=== PATIENT | female | born 1990 | race Caucasian/White ===

== ENCOUNTER 2022-03-24 17:28 | Emergency (ER) | payer SELFPAY ==
[2022-03-24 17:48] VITALS: BP 116/79; PULSE 112; RESP 17; TEMP 97.8; BMI 32.2
[2022-03-24] MEDS ORDERED: FOLIC ACID 1 MG TABLET (FP) PO ONE (18:29)
[2022-03-24] MEDS ORDERED: THIAMINE HCL 100 MG TABLET (FP) PO ONE (18:29)
[2022-03-24] MEDS ORDERED: MAG HYDROX/AL HYDROX/SIMETH 30 ML UNIT-DOSE CUP PO ONE (18:29)
[2022-03-24] MEDS ORDERED: MULTIVITAMINS (DAILY MVI) TABLET (FP) PO ONE (18:29)
[2022-03-24] MEDS ORDERED: ONDANSETRON *ODT* 4 MG TABLET SL ONE (18:30)
[2022-03-24] MEDS ORDERED: THIAMINE HCL 100 MG TABLET (FP) ONE (18:48)
[2022-03-24] MEDS ORDERED: FOLIC ACID 1 MG TABLET (FP) ONE (18:48)
[2022-03-24] MEDS ORDERED: ONDANSETRON *ODT* 4 MG TABLET ONE (18:48)
[2022-03-24] MEDS ORDERED: MAG HYDROX/AL HYDROX/SIMETH 30 ML UNIT-DOSE CUP ONE (18:49)
[2022-03-24] MEDS ORDERED: MULTIVITAMINS (DAILY MVI) TABLET (FP) ONE (18:49)
[2022-03-24 19:59] LABS: BASO % 0.8 % (0-2.0); EOS % 1.2 % (0-4.5); HEMATOCRIT 39.8 % (32.4-45.2); HEMOGLOBIN 13.9 GM/dL (10.7-15.3); LYMPH % 32.1 % (8-40); MCH 30.4 pg (25.7-33.7); MCHC 34.9 g/dl (32.0-36.0); MEAN PLT VOLUME 6.4 fl (7.5-11.1); MONO % 6.7 % (3.8-10.2); NEUT % 59.2 % (42.8-82.8); PLATELET COUNT 535 10^3/uL (134-434); RBC 4.58 M/mm3 (3.60-5.2); RDW 12.5 % (11.6-15.6); WHITE BLOOD COUNT 8.5 K/mm3 (4.0-10.0)
[2022-03-24] MEDS ORDERED: chlordiazePOXIDE HCL 25 MG CAPSULE PO ONE (20:04)
[2022-03-24] MEDS ORDERED: chlordiazePOXIDE HCL 25 MG CAPSULE ONE (20:17)
[2022-03-24 20:18] LABS: CALCIUM 9.9 mg/dL (8.5-10.1)
[2022-03-24 20:19] LABS: ALBUMIN 4.1 g/dl (3.4-5.0); BLOOD UREA NITROGEN 8.5 mg/dL (7-18)
[2022-03-24 20:23] LABS: CREATININE 0.6 mg/dL (0.55-1.3)
[2022-03-24 20:24] LABS: BILIRUBIN,TOTAL 0.2 mg/dL (0.2-1); TOT PROT 7.6 g/dl (6.4-8.2)
== END 2022-03-24 22:14 | disposition home or self-care (01) ==
LOC: JER 17:28
DX: F10.129 Alcohol abuse with intoxication, unspecified (principal); R10.13 Epigastric pain
CPT/HCPCS: 36415; 80053; 83690; 84703; 85025; 99283-25; Q0162

== ENCOUNTER 2022-04-29 09:46 | Inpatient (IN) | payer SELFPAY ==
[2022-04-29] MEDS ORDERED: diazePAM CARPU-JECT 10 MG/2 ML DISP.SYRIN IVPUSH ONE (11:15)
[2022-04-29] MEDS ORDERED: LACTATED RINGERS SOLUTION 1000 ML INFUS.BAG IV ONE ×2 (11:15→17:02)
[2022-04-29] MEDS ORDERED: morphine CARPU-JECT 4 MG/1 ML DISP.SYRIN IVPUSH ONE ×2 (11:24→17:29)
[2022-04-29] MEDS ORDERED: ONDANSETRON 4 MG/2 ML VIAL IVPUSH ONE (11:33)
[2022-04-29] MEDS ORDERED: FAMOTIDINE 20 MG/50 ML IVPB 20 MG/50 ML MG IVPB ONE ×2 (11:38→12:13)
[2022-04-29] MEDS ORDERED: diazePAM CARPU-JECT 10 MG/2 ML DISP.SYRIN ONE (12:12)
[2022-04-29] MEDS ORDERED: ONDANSETRON 4 MG/2 ML VIAL ONE (12:13)
[2022-04-29] MEDS ORDERED: morphine SULFATE 4 MG/ML VIAL ONE ×2 (12:13→18:26)
[2022-04-29 12:38] LABS: EOS % 1.6 % (0-4.5); HEMATOCRIT 41.7 % (32.4-45.2); HEMOGLOBIN 14.4 GM/dL (10.7-15.3); LYMPH % 8.3 % (8-40); MCH 31.7 pg (25.7-33.7); MCHC 34.5 g/dl (32.0-36.0); MEAN CELL VOLUME 91.7 fl (80-96); MEAN PLT VOLUME 7.8 fl (7.5-11.1); MONO % 6.8 % (3.8-10.2); NEUT % 82.3 % (42.8-82.8); PLATELET COUNT 152 10^3/uL (134-434); RBC 4.54 M/mm3 (3.60-5.2); WHITE BLOOD COUNT 7.7 K/mm3 (4.0-10.0)
[2022-04-29 13:00] LABS: CHLORIDE 100 mmol/L (98-107); SODIUM 139 mmol/L (136-145)
[2022-04-29 13:05] LABS: CALCIUM 9.5 mg/dL (8.5-10.1)
[2022-04-29 13:06] LABS: ALBUMIN 4.3 g/dl (3.4-5.0); ANION GAP 16 MMOL/L (8-16); BLOOD UREA NITROGEN 11.7 mg/dL (7-18); CO2 24 mmol/L (21-32); GLUCOSE,RANDOM 102 mg/dL (74-106)
[2022-04-29 13:07] LABS: LIPASE 193 U/L (73-393)
[2022-04-29 13:09] LABS: CREATININE 0.7 mg/dL (0.55-1.3); SGOT/AST 165 U/L (15-37); SGPT/ALT 138 U/L (13-61)
[2022-04-29 13:11] LABS: BILIRUBIN,TOTAL 1.7 mg/dL (0.2-1); TOT PROT 7.7 g/dl (6.4-8.2)
[2022-04-29 13:12] LABS: ALK PHOS 102 U/L (45-117)
[2022-04-29 13:15] LABS: MAGNESIUM 0.9 mg/dL (1.8-2.4)
[2022-04-29] MEDS ORDERED: MAGNESIUM SULF 50% (8.12 MEQ/2 ML-1 GM VIAL) IVPB ONE (13:25)
[2022-04-29] MEDS ORDERED: KETOROLAC TROMETHAMINE 15 MG/ML VIAL IVPUSH ONE ×2 (14:31→22:50)
[2022-04-29] MEDS ORDERED: KCL 10 MEQ IVPB 10 MEQ/100 ML INFUS.BAG IVPB SCH (14:45)
[2022-04-29] MEDS ORDERED: KETOROLAC TROMETHAMINE 15 MG/ML VIAL ONE (15:39)
[2022-04-29] MEDS: KCL 10 MEQ IVPB 10 MEQ/100 ML INFUS.BAG IVPB SCH ×3 (17:15→21:00)
[2022-04-29 18:03] LABS: HIV INTERPRETATION NEGATIVE (NEGATIVE)
[2022-04-29] MEDS ORDERED: LACTATED RINGERS SOLUTION 1,000 ML/1,000 ML INFUS.BAG IV SCH (18:45)
[2022-04-29] MEDS ORDERED: KCL 10 MEQ IVPB 10 MEQ/100 ML INFUS.BAG IVPB ONE ×2 (18:49→20:48)
[2022-04-29 19:41] LABS: BLOOD UREA NITROGEN 12.6 mg/dL (7-18); CALCIUM 8.8 mg/dL (8.5-10.1); MAGNESIUM 2.5 mg/dL (1.8-2.4)
[2022-04-29 19:45] LABS: CREATININE 0.7 mg/dL (0.55-1.3)
[2022-04-29 20:22] LABS: BILIRUBIN,DIRECT 0.5 mg/dL (0.0-0.2)
[2022-04-29] MEDS ORDERED: FOLIC ACID INJECTION - 1 MG, THIAMINE HCL 100 MG, MULTIVIT INJECTION ADULT 10 ML in SOD... IVPB ONE (22:07)
[2022-04-29] MEDS ORDERED: LACTATED RINGERS SOLUTION 1,000 ML IV SCH (22:15)
[2022-04-29] MEDS ORDERED: ACETAMINOPHEN INJECTION 100 ML IVPB ONE (22:28)
[2022-04-29] MEDS: ACETAMINOPHEN 1000 MG/100 ML BAG IVPB PRN (22:40)
[2022-04-29] MEDS ORDERED: LORazepam 1 MG TABLET PO PRN (22:50)
[2022-04-29] MEDS ORDERED: LORazepam 1 MG TABLET PO SCH (23:00)
[2022-04-29 23:11] LABS: EPI CELLS 23 /uL (0-25.1); HYALINE CASTS 1 /uL (0-3.1); URINE APPEARANCE CLEAR; URINE BACTERIA 322 /uL (0-1359); URINE BILIRUBIN NEGATIVE (NEGATIVE); URINE COLOR DK YELLOW; URINE GLUCOSE (UA) NEGATIVE (NEGATIVE); URINE KETONE 1+ (NEGATIVE); URINE LEUK ESTERASE NEGATIVE (NEGATIVE); URINE NITRITE NEGATIVE (NEGATIVE); URINE PROTEIN TRACE (NEGATIVE); URINE RBC 74 /uL (0-23.9); URINE WBC 21 /uL (0-25.8)
[2022-04-30] MEDS ORDERED: LORazepam 1 MG TABLET ONE (00:02)
[2022-04-30] MEDS ORDERED: KETOROLAC TROMETHAMINE 15 MG/ML VIAL ONE (00:02)
[2022-04-30] MEDS ORDERED: LORazepam 2 MG/ML SDV VIAL IVPUSH PRN (00:50)
[2022-04-30] MEDS ORDERED: morphine SULFATE 4 MG/ML VIAL IVPUSH ONE (00:57)
[2022-04-30] MEDS ORDERED: morphine SULFATE 4 MG/ML VIAL ONE (01:48)
[2022-04-30] MEDS ORDERED: FOLIC ACID INJECTION - 1 MG, THIAMINE HCL 100 MG, MULTIVIT INJECTION ADULT 10 ML in SOD... IVPB ONE (02:00)
[2022-04-30] MEDS: LORazepam 2 MG/ML SDV VIAL IVPUSH SCH ×2 (04:08→11:12)
[2022-04-30 04:24] VITALS: BMI 31.4
[2022-04-30 09:49] LABS: BASO % 0.7 % (0-2.0); EOS % 3.2 % (0-4.5); HEMATOCRIT 35.4 % (32.4-45.2); HEMOGLOBIN 12.2 GM/dL (10.7-15.3); LYMPH % 12.7 % (8-40); MCH 31.9 pg (25.7-33.7); MCHC 34.6 g/dl (32.0-36.0); MEAN CELL VOLUME 92.2 fl (80-96); MEAN PLT VOLUME 7.5 fl (7.5-11.1); MONO % 5.9 % (3.8-10.2); NEUT % 77.5 % (42.8-82.8); PLATELET COUNT 104 10^3/uL (134-434); RBC 3.84 M/mm3 (3.60-5.2); RDW 15.6 % (11.6-15.6); WHITE BLOOD COUNT 5.9 K/mm3 (4.0-10.0)
[2022-04-30] MEDS: PANTOPRAZOLE SODIUM 40 MG VIAL IVPUSH SCH (10:10)
[2022-04-30] MEDS: THIAMINE HCL 200 MG/2 ML VIAL IVPB SCH (10:11)
[2022-04-30] MEDS: FOLIC ACID 1 MG TABLET (FP) PO SCH (10:11)
[2022-04-30 10:13] VITALS: RESP 18
[2022-04-30 10:17] LABS: BLOOD UREA NITROGEN 11.7 mg/dL (7-18); CALCIUM 8.4 mg/dL (8.5-10.1); MAGNESIUM 1.7 mg/dL (1.8-2.4)
[2022-04-30 10:20] LABS: CREATININE 0.5 mg/dL (0.55-1.3); PHOSPHOROUS 2.1 mg/dL (2.5-4.9)
[2022-04-30 10:24] LABS: ALBUMIN 3.3 g/dl (3.4-5.0)
[2022-04-30] MEDS: ACETAMINOPHEN 1000 MG/100 ML BAG IVPB PRN (10:35)
[2022-04-30] MEDS ORDERED: KCL 10 MEQ IVPB 10 MEQ/100 ML INFUS.BAG IVPB SCH (12:45)
[2022-04-30] MEDS ORDERED: NAPH,MB-DB/K PH,MBDB POWDER PACKET PO ONE (13:00)
[2022-04-30] MEDS ORDERED: MAGNESIUM IN WATER 4 GM/50 ML PREMIX BAG IVPB ONE (13:00)
[2022-04-30] MEDS ORDERED: POTASSIUM CHLORIDE TABS 20 MEQ TABLET.ER (FP) PO ONE (13:00)
[2022-04-30] MEDS ORDERED: MAGNESIUM SULFATE 4GM/100CC IN STERILE WATER IVPB ONE (13:00)
[2022-04-30] MEDS: KETOROLAC TROMETHAMINE 15 MG/ML VIAL IVPUSH PRN (20:58)
[2022-04-30] MEDS: LORazepam 1 MG TABLET PO PRN (20:59)
[2022-04-30 21:39] LABS: CALCIUM 8.8 mg/dL (8.5-10.1)
[2022-04-30 21:40] LABS: BLOOD UREA NITROGEN 8.3 mg/dL (7-18); MAGNESIUM 2.3 mg/dL (1.8-2.4)
[2022-04-30 21:44] LABS: CREATININE 0.6 mg/dL (0.55-1.3)
[2022-05-01] MEDS ORDERED: LORazepam 1 MG TABLET PO SCH (05:00)
[2022-05-01] MEDS ORDERED: LORazepam 2 MG/ML SDV VIAL IVPUSH SCH (05:00)
[2022-05-01] MEDS: LORazepam 1 MG TABLET PO PRN ×3 (09:09→22:20)
[2022-05-01] MEDS: FOLIC ACID 1 MG TABLET (FP) PO SCH (09:10)
[2022-05-01] MEDS: THIAMINE HCL 200 MG/2 ML VIAL IVPB SCH (09:10)
[2022-05-01] MEDS: PANTOPRAZOLE SODIUM 40 MG VIAL IVPUSH SCH (09:10)
[2022-05-01 09:49] LABS: ALBUMIN 3.4 g/dl (3.4-5.0)
[2022-05-01] MEDS: KETOROLAC TROMETHAMINE 15 MG/ML VIAL IVPUSH PRN ×3 (09:49→22:21)
[2022-05-01 09:55] LABS: CREATININE 0.5 mg/dL (0.55-1.3)
[2022-05-01 09:56] LABS: MAGNESIUM 1.8 mg/dL (1.8-2.4)
[2022-05-01 09:58] LABS: BLOOD UREA NITROGEN 8.7 mg/dL (7-18); CALCIUM 9.3 mg/dL (8.5-10.1)
[2022-05-01 10:01] LABS: PHOSPHOROUS 1.8 mg/dL (2.5-4.9)
[2022-05-01 10:02] LABS: TOT PROT 6.2 g/dl (6.4-8.2)
[2022-05-01] MEDS: NAPH,MB-DB/K PH,MBDB POWDER PACKET PO SCH (11:17)
[2022-05-01] MEDS: MAG HYDROX/AL HYDROX/SIMETH 30 ML UNIT-DOSE CUP PO ONE ×2 (11:17)
[2022-05-01] MEDS: SUCRALFATE 1 GM TABLET (FP) PO SCH (22:20)
[2022-05-02] MEDS ORDERED: LORazepam 0.5 MG TABLET PO PRN
[2022-05-02] MEDS ORDERED: LORazepam 2 MG/ML SDV VIAL IVPUSH PRN
[2022-05-02] MEDS ORDERED: LORazepam 0.5 MG TABLET PO SCH (05:00)
[2022-05-02] MEDS ORDERED: LORazepam 2 MG/ML SDV VIAL IVPUSH SCH (05:00)
[2022-05-02 07:12] VITALS: BP 108/62; PULSE 71; TEMP 98
[2022-05-02] MEDS ORDERED: MULTIVITAMINS THER W-MINERALS COMBO TABLET (FP) PO SCH (10:00)
[2022-05-02] MEDS: SUCRALFATE 1 GM TABLET (FP) PO SCH (10:07)
[2022-05-02] MEDS: LORazepam 1 MG TABLET PO PRN (10:07)
[2022-05-02] MEDS: NAPH,MB-DB/K PH,MBDB POWDER PACKET PO SCH (10:08)
[2022-05-02] MEDS: FOLIC ACID 1 MG TABLET (FP) PO SCH (10:08)
[2022-05-02] MEDS: THIAMINE HCL 200 MG/2 ML VIAL IVPB SCH (10:08)
[2022-05-02] MEDS: PANTOPRAZOLE SODIUM 40 MG VIAL IVPUSH SCH (10:08)
[2022-05-03] MEDS ORDERED: LORazepam 0.5 MG TABLET PO ONE (05:00)
[2022-05-03] MEDS ORDERED: LORazepam 2 MG/ML SDV VIAL IVPUSH ONE (05:00)
== END 2022-05-02 13:35 | disposition home or self-care (01) | DRG 241 ==
LOC: JER 09:46 → JERBED 14:00 → J7W 04-30 03:45
PROVIDERS: ADMIT Internal Medicine; ATTEND Internal Medicine
DX: K29.20 Alcoholic gastritis without bleeding (principal); K86.0 Alcohol-induced chronic pancreatitis; K92.0 Hematemesis; F10.239 Alcohol dependence with withdrawal, unspecified; R10.13 Epigastric pain; F31.9 Bipolar disorder, unspecified; D69.6 Thrombocytopenia, unspecified; K76.0 Fatty (change of) liver, not elsewhere classified; E83.42 Hypomagnesemia; R74.01 Elevation of levels of liver transaminase levels; F17.210 Nicotine dependence, cigarettes, uncomplicated; E87.6 Hypokalemia; E83.39 Other disorders of phosphorus metabolism
CPT/HCPCS: 0241U-QW; 36415; 74177-TC; 76705-TC; 80048; 80053; 81003; 82248; 82962; 83690; 83735; 84100; 84703; 85025; 86704; 86709; 86780; 86803; 87086; 87340; 87389; 87491; 87517; 87591; 93005; 93010; 99285-25